=== PATIENT | female | born 1960 | race Caucasian/White ===

== ENCOUNTER 2024-11-07 13:08 | Inpatient (IN) ==
--- NOTE | 2024-11-07 13:27 | Emergency Department Note ---
Impression & Plan G tube feedings, LIZ (acute kidney injury), UTI (urinary tract infection) ED Provider Note NAME: JOSEPHINE DYE AGE: 64 SEX: F : 1960 ARRIVES VIA: Ambulance INFORMANT: Patient, ED PROVIDER(S): Rudy Leos MD CHIEF COMPLAINT: Abnormal labs MEDICAL DECISION MAKING: Patient presents due to concern for abnormal kidney function and reported chills. IV was established and blood work was obtained along with a BioFire and chest x-ray. Initial white count noted to be normal and patient is afebrile. Patient does have a gastrostomy and G-tube. Sites are well-appearing. Patient's blood work today shows a normal white count mild anemia but normal platelet count. The patient does have significant LIZ/ARF with a creat of 4.7 today. Lipase of 218 but no epigastric pain. Urinalysis does show concern for possible infection BioFire is negative. I did speak with the on-call hospitalist Dr. Perkins and the patient was admitted to the medicine service. Additional IV fluids ordered. Discussion w/ other healthcare providers: Dr. Perkins inpatient medicine service Prior /Outside records reviewed: None Differential diagnosis: Infection, dehydration, metabolic abnormality, hypo/hyperglycemia, electrolyte imbalance, anemia, UTI, pneumonia, thyroid dysfunction among others were considered. Diagnostics, as interpreted by me: ECG: None Cardiac monitoring: An order was placed for continuous cardiac monitoring. The monitor shows a rate of 105 with tachycardic and regular rhythm. Patient was placed on pulse oximetry Medical decision rules: None Imaging studies: I informally interpreted the patient's chest x-ray does not show obvious pneumonia with formal report to follow. HPI: Patient presents due to concern for abnormal labs. The patient reports that she has had a prior history of G-tube as well as gas in her ostomy for a fistula. Patient denies any chest pains or shortness of breath she has felt weak and fatigued. She reports that she had some routine blood work completed which showed abnormal kidney function and she was referred here. Patient is currently resident at the [facility]. Patient has had cough which has been nonproductive. No smoking. PAST MEDICAL HISTORY: See Below PAST SURGICAL HISTORY: See Below SOCIAL HISTORY: See Below HOME MEDICATIONS: See Below ALLERGIES: See Below VITALS: See Below PHYSICAL EXAMINATION: GENERAL: Mildly ill but nontoxic in appearance. Wearing glasses. EYE EXAM: Normal conjunctiva. PERRL, no anisocoria and EOM's grossly intact w/o pain. OROPHARYNX: Dry mucus membranes, grossly normal dentition. NECK: Trachea midline, no stridor. LUNGS: Clear to auscultation. Normal chest wall mechanics. HEART: Tachycardic and regular SR, no MRG. ABDOMEN: Abdomen soft, G-tube noted as well as gastrostomy with bag in place. Non-tender, no masses, no rebound or guarding. BACK: No CVA TTP. SKIN: No rashes and no bruising. UPPER EXTREMITIES: Upper extremities are grossly normal. LOWER EXTREMITIES: Grossly normal, no edema. NEURO EXAM: Awake and alert, follows commands, no obvious facial asymmetry, normal speech, moves all 4 extremities. Past Med/Surg History Problem List (Updated 11/09/24 @ 19:44 by Rudy Leos MD) Abdominal pain UTI (urinary tract infection) (Acute) GERD (gastroesophageal reflux disease) G tube feedings (Acute) LIZ (acute kidney injury) (Acute) Social History Smoking Status: Never smoker Hx Alcohol Use: No Hx Substance Use: No Preferred Language: Yi Communication Ability: Effective [employer] Required: No Beliefs That Will Affect Care: None Current Living Situation: Jail Current Living Situation Comment: [place]a Feels Safe at Home: Yes Assistive Devices: Glasses and Walker Allergies Allergies Allergy/AdvReac Type Severity Reaction Status Date / Time meperidine [From Demerol] Allergy Unknown Unknown - Unverified 11/07/24 16:06 On file w/ [facility] Home Meds Home Medications Medication Instructions Recorded Confirmed acetaminophen 500 mg tablet 500 mg feeding tube Q4H PRN Pain 11/07/24 11/07/24 bisacodyl 10 mg rectal suppository 10 mg NH DAILY PRN Constipation 11/07/24 11/07/24 (Dulcolax (bisacodyl)) calcium carbonate (Tums) 600 mg feeding tube Q3H PRN 11/07/24 11/07/24 Indigestion diclofenac sodium 1 % topical gel 2 g topical Q6H PRN Back Pain 11/07/24 11/07/24 magnesium hydroxide 400 mg/5 mL 2,400 mg feeding tube DAILY PRN 11/07/24 11/07/24 oral suspension (Milk of Magnesia) Constipation melatonin 3 mg tablet 3 mg feeding tube HS insomnia 11/07/24 11/07/24 metoprolol tartrate 25 mg tablet 25 mg feeding tube BID 11/07/24 11/07/24 omeprazole 40 mg capsule,delayed 40 mg feeding tube DAILY 11/07/24 11/07/24 release ondansetron 4 mg disintegrating 4 mg PO Q6H PRN Nausea And Vomiting 11/07/24 11/07/24 tablet ondansetron HCl 4 mg tablet 4 mg feeding tube Q8H PRN Upset 11/07/24 11/07/24 Stomach scopolamine base 1 mg over 3 days 1 patch transdermal Q72H PRN 11/07/24 11/07/24 transdermal patch Nausea And Vomiting sodium phosphates 19 gram-7 118 ml NH DAILY PRN Constipation 11/07/24 11/07/24 gram/118 mL enema (Fleet Enema) triamcinolone acetonide 0.1 % 1 applic topical DAILY Rash on back 11/07/24 11/07/24 topical cream Results & Data (ED) Vital Signs Vital Signs - 24 hr 11/07/24 12:58 11/07/24 13:34 11/07/24 13:50 Temperature 36.8 C 37.0 C Temperature Source Oral Oral Pulse Rate 110 H Pulse Rate [Apical] 102 H Respiratory Rate 18 20 Respiratory Effort / Characteristics Non-Labored Spontaneous Respiratory Depth Normal Respiratory Pattern Regular Blood Pressure 129/74 Blood Pressure [Right Arm] 105/65 Blood Pressure Mean 92 Blood Pressure Mean [Right Arm] 78 Blood Pressure Position [Right Arm] Semi-fowlers Pulse Oximetry 99 94 Oxygen Delivery Method Room Air Sepsis Recent Fever Within 48 Hours No Sepsis New/Unexplained Change in Mental Status N/A Sepsis Action Taken by Nursing No Action Required 11/07/24 13:51 Temperature Temperature Source Pulse Rate 111 H Pulse Rate [Apical] Respiratory Rate Respiratory Effort / Characteristics Respiratory Depth Respiratory Pattern Blood Pressure Blood Pressure [Right Arm] Blood Pressure Mean Blood Pressure Mean [Right Arm] Blood Pressure Position [Right Arm] Pulse Oximetry Oxygen Delivery Method Sepsis Recent Fever Within 48 Hours Sepsis New/Unexplained Change in Mental Status Sepsis Action Taken by Jail Medications Current Medication List: was personally reviewed by me Laboratory Data Attestation: I reviewed the patient's lab results. 11/09/24 07:42 11/09/24 07:42 Lab Results 11/07/24 11/07/24 11/07/24 Range/Units 13:20 13:53 15:30 WBC 7.09 (4.8-10.8) K/ul RBC 3.85 L (4.20-5.40) M/uL Hgb 11.0 L (12.0-16.0) g/dl Hct 33.5 L (37.0-47.0) % MCV 87.0 (80.0-100.0) fL MCH 28.6 (25.0-34.0) pg MCHC 32.8 (32.0-36.0) g/dL RDW Std Deviation 43.8 (36.4-46.3) fL RDW Coeff of Juan Manuel 13.8 (11.5-14.5) % Plt Count 209 (130-400) K/uL MPV 9.9 (9.4-12.4) fL Immature Gran % (Auto) 0.3 % Neut % (Auto) 67.4 % Lymph % (Auto) 22.4 % [place] % (Auto) 7.5 % Eos % (Auto) 2.3 % Baso % (Auto) 0.1 % Neut # (Auto) 4.78 (1.40-6.50) K/uL Lymph # (Auto) 1.59 (1.20-3.40) K/uL [place] # (Auto) 0.53 (0.11-0.59) K/uL Eos # (Auto) 0.16 (0.00-0.50) K/uL Baso # (Auto) 0.01 (0.00-0.20) K/uL Immature Gran # (Auto) 0.02 (0.01-0.20) K/uL Sodium 135 L (136-145) mmol/L Potassium 3.8 (3.5-5.1) mmol/L Chloride 77 L (98-107) mmol/L Carbon Dioxide 42 H* (21-32) mmol/L Anion Gap 16 H (3-11) BUN 119 H (6-23) mg/dl Creatinine 4.70 H* (0.6-1.2) mg/dl Est Cr Clr Drug Dosing 11.6 ml/min eGFR 9.76 BUN/Creatinine Ratio 25.3 H (10-20) Glucose 140 H (70-99(Fasting)) mg/dl Calcium 10.1 (8.6-10.3) mg/dl Total Bilirubin 0.9 (0.2-1.0) mg/dl AST 29 (13-39) U/L ALT 26 (7-52) U/L Alkaline Phosphatase 81 (34-104) U/L Total Protein 7.9 (6.0-8.3) gm/dl Albumin 3.9 (3.4-5.0) gm/dl Globulin 4.0 (2.5-4.0) gm/dl Albumin/Globulin Ratio 1.0 (0.9-2) Lipase 218 H (11-82) U/L HCG, Qual Cancelled Urine Color Yellow Urine Appearance Cloudy A (Clear) Urine pH >= 9.0 H (4.5-7.5) Ur Specific [place] 1.010 (1.000-1.030) Urine Protein 1+ H (Negative) Urine Glucose (UA) Negative (Negative) Urine Ketones Negative (Negative) Urine Blood Negative (Negative) Urine Nitrite Negative (Negative) Urine Bilirubin Negative (Negative) Urine Urobilinogen Negative (Negative) Ur Leukocyte Esterase 2+ H (Negative) Urine WBC (Auto) >50 H (0-5) /hpf Urine RBC (Auto) 0-2 (0-2) /hpf U Hyaline Cast (Auto) 0-2 (0-2) /lpf U Epithel Cells (Auto) 6-10 H (0-2) /hpf Urine Bacteria (Auto) 4+ H (None Seen) Urine Comment Adenovirus (PCR) Not Detected (NotDetected) B. pertussis DNA (PCR) Not Detected (NotDetected) B.parapertussis DNA PCR Not Detected (NotDetected) C. pneumoniae DNA (PCR) Not Detected (NotDetected) Coronavirus OC43 (PCR) Not Detected (NotDetected) Coronavirus HKU1 (PCR) Not Detected (NotDetected) Coronavirus 229E (PCR) Not Detected (NotDetected) SARS-CoV-2 (PCR) Not Detected (NotDetected) Coronavirus NL63 (PCR) Not Detected (NotDetected) Human Metapneumovir PCR Not Detected (NotDetected) Influenza Type A (PCR) Not Detected (NotDetected) Influenza Type B (PCR) Not Detected (NotDetected) M. pneumoniae (PCR) Not Detected (NotDetected) Parainfluenza 1 (PCR) Not Detected (NotDetected) Parainfluenza 2 (PCR) Not Detected (NotDetected) Parainfluenza 3 (PCR) Not Detected (NotDetected) Parainfluenza 4 (PCR) Not Detected (NotDetected) RSV (PCR) Not Detected (NotDetected) Entero/Rhino (PCR) Not Detected (NotDetected) Administered Medications Diphenhydramine HCl (Diphenhydramine 50 Mg/Ml Vial) 25 mg IV Q6H PRN PRN Reason: Itching Stop: 12/07/24 18:40 Last Admin: 11/09/24 14:56 Dose: 25 mg Documented By: Admin: 11/08/24 18:45 Dose: 25 mg Documented By: Admin: 11/08/24 02:53 Dose: 25 mg Documented By: Admin: 11/07/24 22:50 Dose: 25 mg Documented By: CHRISTINA Enteral Nutritional Formula (Peptamen 1.5 Ole 1,000 Ml Bag) 0 ml GT DAILY@1900 CAT; Protocol Stop: 12/07/24 20:59 Last Admin: 11/08/24 19:39 Dose: 1,000 ml Documented By: Admin: 11/07/24 21:10 Dose: 1,000 ml Documented By: CHRISTINA Heparin Sodium (Porcine) (Heparin Sod 5,000 Unit/0.5 Ml Vial) 5,000 units SQ Q8 CAT Stop: 12/07/24 21:59 Last Admin: 11/09/24 14:18 Dose: 5,000 units Documented By: Admin: 11/09/24 06:06 Dose: 5,000 units Documented By: Admin: 11/08/24 21:37 Dose: 5,000 units Documented By: Admin: 11/08/24 13:59 Dose: 5,000 units Documented By: Admin: 11/08/24 05:48 Dose: Not Given Documented By: Admin: 11/07/24 21:10 Dose: Not Given Documented By: CHRISTINA Sodium Chloride (Nss) 1,000 mls @ 80 mls/hr IV .[id number] CAT Stop: 11/10/24 15:29 Last Admin: 11/09/24 19:09 Dose: 80 mls/hr Documented By: Infusion: 11/09/24 18:36 Dose: Infused Documented By: Admin: 11/09/24 06:06 Dose: 80 mls/hr Documented By: Infusion: 11/09/24 05:47 Dose: Infused Documented By: Infusion: 11/08/24 17:32 Dose: 80 mls/hr Documented By: Infusion: 11/08/24 16:25 Dose: 0 mls/hr Documented By: Admin: 11/08/24 16:10 Dose: 80 mls/hr Documented By: Infusion: 11/08/24 16:10 Dose: Infused Documented By: Admin: 11/08/24 03:51 Dose: 80 mls/hr Documented By: Infusion: 11/08/24 03:49 Dose: Infused Documented By: Admin: 11/07/24 16:09 Dose: 80 mls/hr Documented By: NINO Pantoprazole Sodium (Protonix) 40 mg in 10 mls @ 5 mls/min IV DAILY CAT Stop: 12/08/24 09:14 Last Admin: 11/09/24 09:20 Dose: 5 mls/min Documented By: Admin: 11/08/24 09:44 Dose: 5 mls/min Documented By: ANDRY Ceftriaxone Sodium (Rocephin) 2,000 mg in 50 mls @ 100 mls/hr IV Q24H CAT Stop: 11/13/24 10:59 Last Infusion: 11/09/24 11:45 Dose: Infused Documented By: Admin: 11/09/24 11:15 Dose: 100 mls/hr Documented By: Infusion: 11/08/24 12:49 Dose: Infused Documented By: Admin: 11/08/24 12:17 Dose: 100 mls/hr Documented By: ANDRY Miscellaneous (Tubefeeds - Stop Order) 1 each N/A DAILY@0900 CAT Stop: 12/08/24 10:59 Last Admin: 11/09/24 09:20 Dose: 1 each Documented By: Admin: 11/08/24 08:55 Dose: 1 each Documented By: ANDRY Ondansetron HCl (Ondansetron Inj 2 Mg/Ml 2 Ml Vial) 4 mg IV Q6H PRN PRN Reason: Nausea Stop: 12/07/24 15:32 Last Admin: 11/09/24 07:27 Dose: 4 mg Documented By: Admin: 11/08/24 08:50 Dose: 4 mg Documented By: ANDRY Sterile Water (Tube Feeding Water Flush) 250 ml JT Q6H CAT Stop: 12/09/24 17:59 Last Admin: 11/09/24 18:33 Dose: 250 ml Documented By: JOHANN Discontinued Medications Acetaminophen (Acetaminophen 1000 Mg/100 Ml Iv) Confirm Administered Dose 1,000 mg IV .STK-MED ONE Stop: 11/09/24 04:26 Last Admin: 11/09/24 04:39 Dose: Not Given Documented By: ELIZABETH Hydromorphone HCl (Hydromorphone Inj 0.5 Mg/0.5 Ml Syr) 0.25 mg IV NOW STA Stop: 11/09/24 05:52 Last Admin: 11/09/24 06:05 Dose: 0.25 mg Documented By: ELIZABETH Sodium Chloride (Nss) 1,000 mls @ 999 mls/hr IV .Q1H1M ONE Stop: 11/07/24 14:48 Last Infusion: 11/07/24 15:00 Dose: Infused Documented By: Admin: 11/07/24 13:52 Dose: 999 mls/hr Documented By: NINO Sodium Chloride (Nss) 500 mls @ 999 mls/hr IV .Q31M ONE Stop: 11/07/24 15:39 Last Infusion: 11/07/24 16:06 Dose: Infused Documented By: Admin: 11/07/24 15:32 Dose: 999 mls/hr Documented By: NINO Acetaminophen (Ofirmev) 1,000 mg in 100 mls @ 400 mls/hr IV NOW STA Stop: 11/09/24 04:28 Last Infusion: 11/09/24 04:55 Dose: Infused Documented By: Admin: 11/09/24 04:34 Dose: 400 mls/hr Documented By: ELIZABETH Ondansetron HCl (Ondansetron Inj 2 Mg/Ml 2 Ml Vial) 4 mg IV NOW STA Stop: 11/07/24 13:16 Last Admin: 11/07/24 13:51 Dose: 4 mg Documented By: NINO Pantoprazole Sodium (Pantoprazole 40 Mg Tab) 40 mg PO QAM [facility] Stop: 12/08/24 08:59 Last Admin: 11/08/24 09:27 Dose: Not Given Documented By: ANDRY Pantoprazole Sodium (Pantoprazole 40 Mg Tab) 40 mg PO NOW STA Stop: 11/07/24 16:12 Last Admin: 11/07/24 21:10 Dose: 40 mg Documented By: KMSidney Discharge Plan Visit Data Chief Complaint: Abnormal Labs/Diagnostic Testing Stated Complaint: ABNORMAL LABS ED Provider: Rudy Leos Discharge Problem: G tube feedings, LIZ (acute kidney injury), UTI (urinary tract infection) Patient Disposition: Admitted As Inpatient Condition: Good Discharge Instructions Interventions: ED Discharge Assessment Last Done: 11/07/24 16:58 Discharge Problem: UTI (urinary tract infection) Qualifiers: Urinary tract infection type: acute cystitis Hematuria presence: without hematuria Qualified Code(s): N30.00 - Acute cystitis without hematuria
[2024-11-07 13:39] LABS: Hematocrit (blood only) 33.5 % (37.0-47.0); Hemoglobin 11.0 g/dl (12.0-16.0); Immature Granulocytes # (auto) 0.02 K/uL (0.01-0.20); Immature Granulocytes % (auto) 0.3 %; Mean Corpuscular Hemoglobin 28.6 pg (25.0-34.0); Mean Corpuscular Volume 87.0 fL (80.0-100.0); Platelet Count 209 K/uL (130-400); RDW Standard Deviation 43.8 fL (36.4-46.3); Red Blood Count 3.85 M/uL (4.20-5.40); White Blood Count 7.09 K/ul (4.8-10.8)
[2024-11-07] MEDS: ONDANSETRON INJ 2 MG/ML 2 ML VIAL IV STA (13:51)
[2024-11-07] MEDS: SODIUM CHLORIDE 0.9% 1,000 ML IV ONE (13:52)
[2024-11-07 14:00] LABS: Alanine Aminotransferase 26.0 U/L (7-52); Albumin Globulin Ratio 1.0 (0.9-2); Alkaline Phosphatase 81.0 U/L (34-104); Anion Gap 16.0 (3-11); Bilirubin,Total 0.9 mg/dl (0.2-1.0); Blood Urea Nitrogen 119.0 mg/dl (6-23); Calcium 10.1 mg/dl (8.6-10.3); Carbon Dioxide 42.0 mmol/L (21-32); Chloride 77.0 mmol/L (98-107); Creatinine Clr Calc Pharmacy 11.6 ml/min; Globulin 4.0 gm/dl (2.5-4.0); Glucose 140.0 mg/dl (70-99(Fasting)); Lipase 218.0 U/L (11-82); Potassium 3.8 mmol/L (3.5-5.1); Sodium 135.0 mmol/L (136-145); Total Protein 7.9 gm/dl (6.0-8.3)
--- NOTE | 2024-11-07 14:33 | XRay Report ---
SINGLE VIEW CHEST CLINICAL HISTORY: Cough. Chills FINDINGS: An AP, portable, upright chest radiograph is obtained. No prior studies are available for c omparison at the time of dictation. Suture material projects over the gastroesophageal junction. Ther e is a hiatal hernia. The cardiomediastinal silhouette is top normal for projection noting atheroscle rotic calcification of the thoracic aorta. There is elevation right hemidiaphragm with atelectasis at the right lung base. The lungs and pleural spaces are otherwise clear. No pneumothorax is seen. The skeletal structures are osteopenic. The bony thorax is grossly intact. IMPRESSION: No acute cardiopulmonary abnormality is identified. ACT 112: Negative or not required by law. Electronically signed by: Allen Abad M.D. 11/07/2024 2:32 PM
[2024-11-07 14:59] LABS: Chlamydia pneumoniae PCR Not Detected (NotDetected); Coronavirus 229E PCR Not Detected (NotDetected); Coronavirus CoV-2 (COVID19)PCR Not Detected (NotDetected); Coronavirus HKU1 PCR Not Detected (NotDetected); Coronavirus NL63 PCR Not Detected (NotDetected); Coronavirus OC43PCR Not Detected (NotDetected); Human Metapneumovirus PCR Not Detected (NotDetected); Parainfluenza Virus 1 PCR Not Detected (NotDetected); Parainfluenza Virus 2 PCR Not Detected (NotDetected); Parainfluenza Virus 3 PCR Not Detected (NotDetected); Parainfluenza Virus 4 PCR Not Detected (NotDetected); Respiratory Syncytial VirusPCR Not Detected (NotDetected); Rhinovirus/Enterovirus PCR Not Detected (NotDetected)
[2024-11-07] MEDS: SODIUM CHLORIDE 0.9% 500 ML IV ONE (15:32)
--- NOTE | 2024-11-07 16:05 | History & Physical Report ---
Date of Service November 07, 2024 Assessment & Plan (1) LIZ (acute kidney injury): Plan: -cr 4.7 with baselin 1.14 -likely 2nd to prerenal etiology -pt admits to not drinking enough water -IVF -renal US -nephrology consulted (2) G tube feedings: Plan: -pt currently receiving nocturnal feedings (3) GERD (gastroesophageal reflux disease): Plan: -protonix Plan Heparin SQ for DVT px History of Present Illness Chief Complaint: abnormal labs Primary Care Provider: Newton Lozano Pt is a 64 y/o female with pmh of GERD, gastric bypass, gastric ulcer with gastric fistula/ostomy, G-tube who presents from detention after being found to have elevated cr >4.0. Her baseline from 09/04 is 1.14. Today in the ER he cr was 4.7. Pt states she drinks liquids only and gets nocturnal tube feeds. She admits to not drinking much over the past few weeks. She was given IVF in the ER and will be admitted for further treatment of LIZ likely 2nd to volume depletion from dehydration. Past Med/Surg History Problem List (Updated 11/07/24 @ 16:03 by Jefe Ovalle MD) GERD (gastroesophageal reflux disease) G tube feedings LIZ (acute kidney injury) Social History Smoking Status: Never smoker Preferred Language: Slovak Feels Safe at Home: Yes Review of Systems Review of Systems: CONST: Negative for fever, body aches and chills. HENT: Negative for neck pain/stiffness, headache, congestion, sore throat, swelling. EYES: Negative for discharge/pain or vision changes. RESP: Negative for cough/hemoptysis and shortness of breath. CV: Negative chest pain, difficulty breathing, palpitations. ABD: Negative pain, nausea, vomiting. : Negative increase frequency, dysuria, blood in urine or stool. MUSC: Negative for muscle aches, edema. SKIN: Negative rash, lesions/sores. NEURO: Negative headache, dizziness, weakness. Physical Exam Physical Exam: GENERAL APPEARANCE NAD, activity normal for age, well developed/ well nourished, no cyanosis, pallor, or diaphoresis. EYES lids/conjunctiva normal. EARS/NOSE/THROAT Mucous membranes moist, nares normal, lips/teeth normal uvula midline without oral pharyngeal erythema, exudate or swelling TMs normal bilaterally. No lymphangitis/lymphedema. HEAD/NECK normocephalic atraumatic, no facial trauma, neck is supple. RESPIRATORY respiratory effort normal, speaks in full sentences, no tripod position, no accessory muscle use. Lungs clear to auscultation without rhonchi, wheezes, rales CARDIAC Regular rate and rhythm, no edema. ABDOMINAL gastric fistula with ostomy, G-tube. MUSCLES/EXTREMITIES No abnormal range of motion, no swelling. SKIN Warm, pink and dry. No rashes, dermatoses, petechiae or lesions. NEUROLOGICAL Speech is clear and appropriate. Normal level of consciousness. Gait and coordination are normal. 5/5 strength in all extremities. PSYCH Normal mood and affect. Judgement/competence is appropriate Results & Data Results & Data Vital Signs (Past 12 Hours) Vital Signs Temp Pulse Pulse Resp BP BP Pulse Ox 11/07/24 15:30 102 H 19 107/87 99 11/07/24 13:51 111 H 11/07/24 13:50 37.0 C 11/07/24 13:34 102 H 20 105/65 94 11/07/24 12:58 36.8 C 110 H 18 129/74 99 O2 Del Method 11/07/24 15:30 Room Air 11/07/24 13:51 11/07/24 13:50 11/07/24 13:34 Room Air 11/07/24 12:58 PG Care Time/CCT Total # of Minutes Spent Total Time Spent with Patient: Total time spent is greater than 50% in coordination of care (as documented) at patient's floor/unit and/or counseling patient: Coding Level of Care Code 29991 INT INP/OBS CARE 2/55MIN Diagnoses LIZ (acute kidney injury) N17.9 G tube feedings Z93.1 GERD (gastroesophageal reflux disease) K21.9
[2024-11-07] MEDS: SODIUM CHLORIDE 0.9% 1,000 ML IV SCH (16:09)
[2024-11-07 16:24] LABS: Appearance Urine Cloudy (Clear); Bacteria Urine Automated 4+ (None Seen); Cast Urine Automated 0-2 /lpf (0-2); Glucose Urine UA Negative (Negative); RBC Urine Automated 0-2 /hpf (0-2); WBC Urine Automated >50 /hpf (0-5)
[2024-11-07] MEDS ORDERED: PATIENT'S OWN ENTERAL FEEDING GT SCH (19:00)
[2024-11-07] MEDS: PEPTAMEN 1.5 CAL 1,000 ML BAG GT SCH (21:10)
[2024-11-07] MEDS: HEPARIN SOD 5,000 UNIT/0.5 ML VIAL SQ SCH (21:10)
--- NOTE | 2024-11-07 21:55 | Ultrasound Report ---
Exam(s): US RENAL EXAM: US Retroperitoneal Limited, Renal CLINICAL HISTORY: Reason for exam: LIZ. TECHNIQUE: Real-time limited ultrasound of the retroperitoneum with image documentation. COMPARISON: No relevant prior studies available. FINDINGS: Right kidney: The right kidney measures 9.1x 4.3 x 4.4 cm 90.2 ml. 3 mm slightly hyperechoic nonshadowing structure in the right kidney, likely sinus fat. The right renal cortex measures 12 mm. Left kidney: The left renal cortex measures 7 mm. The left kidney measures 7.2 x 4.3 x 3.9 cm with mild cortical atrophy. No hydronephrosis, mass, or calculus. Bladder: The urinary bladder is partially distended and unremarkable. Both ureteral jets are visible. IMPRESSION: Mild renal atrophy, mostly on the left. No mass or hydronephrosis. Electronically signed by: Praful Cisneros MD 11/07/24 21:54 PM
[2024-11-07] MEDS: diphenhydrAMINE 50 MG/ML VIAL IV PRN (22:50)
[2024-11-08 08:19] LABS: Hematocrit (blood only) 28.8 % (37.0-47.0); Hemoglobin 9.3 g/dl (12.0-16.0); Mean Corpuscular Hemoglobin 29.0 pg (25.0-34.0); Mean Corpuscular Volume 89.7 fL (80.0-100.0); Platelet Count 166 K/uL (130-400); RDW Standard Deviation 44.4 fL (36.4-46.3); Red Blood Count 3.21 M/uL (4.20-5.40); White Blood Count 5.37 K/ul (4.8-10.8)
[2024-11-08] MEDS: ONDANSETRON INJ 2 MG/ML 2 ML VIAL IV PRN (08:50)
[2024-11-08 09:19] LABS: Anion Gap 9.0 (3-11); Calcium 9.0 mg/dl (8.6-10.3); Carbon Dioxide 38.0 mmol/L (21-32); Chloride 93.0 mmol/L (98-107); Potassium 3.6 mmol/L (3.5-5.1); Sodium 140.0 mmol/L (136-145)
--- NOTE | 2024-11-08 09:21 | Nephrology Consultation ---
Date of Consultation November 08, 2024 Assessment & Plan (1) LIZ (acute kidney injury): * LIZ due to clinical dehydration, cystitis. It is unclear whether patient was receiving free water w/ G-tube feedings * Cr is trending down following gentle hydration * Baseline Cr 1.0 09/04 at [facility] * Urinalysis suggestive of UTI w/ pyuria * 11/07/24 renal US revealed: R 9.1 cm, L 7.2 cm. Mild renal atrophy, mostly on the L. No mass or hydronephrosis * Continue 0.9 NS at 80 cc/hr * Monitor daily BMP, UO * Will request H&P, last physician note from [facility] (2) UTI (urinary tract infection): * Urinalysis w/ pyuria * Urine cx + E. Coli * Continue empiric ceftriaxone therapy History of Present Illness Reason for Consultation: LIZ Attending Physician: Timothy Lozano MD History of Present Illness Mrs. Mckay is a 64 year old white female who is seen at the request of the [facility] hospitalist service for evaluation of LIZ. This is her 1st [facility] hospitalization. There are no outside medical records available for review at this time. Mrs. Mckay reports that she lives in [place], [place] and has no prior LIZ/CKD. She has not undergone evaluation by a child health associate in the past. She denies any chronic medical illnesses other than obesity. In 2012 she was 5' 1" and weighed 265 lbs. She underwent gastric bypass surgery at [facility] in [place], [place]. She reports that the surgery was complicated and she spent 1 month in the hospital. Post hospitalization she lost 80 lbs. [facility] when she was found to have cholecystitis. She returned to [facility] and underwent cholecystectomy. Unfortunately the surgery was again complicated and she reports being transferred to [facility]. Mrs. 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 She notes that anything she takes orally drains into a collection drain from her enterocutaneous fistula. Mrs. Mckay was transferred to [facility] in [place], [place] 09/04. Recently she had become lethargic. Porsche ribera MD preformed laboratory testing and sent her to [facility] when Cr was found to be 4.54 (baseline 1.0 09/04 at [facility]). EMD biofire testing was negative. Allergies Allergy/AdvReac Type Severity Reaction Status Date / Time meperidine [From Demerol] Allergy Unknown Unknown - Unverified 11/07/24 16:06 On file w/ [facility] Home Medications Medication Instructions Recorded Confirmed Type acetaminophen 500 mg tablet 500 mg feeding tube Q4H PRN Pain 11/07/24 11/07/24 History bisacodyl 10 mg rectal suppository 10 mg VT DAILY PRN Constipation 11/07/24 11/07/24 History (Dulcolax (bisacodyl)) calcium carbonate (Tums) 600 mg feeding tube Q3H PRN 11/07/24 11/07/24 History Indigestion diclofenac sodium 1 % topical gel 2 g topical Q6H PRN Back Pain 11/07/24 11/07/24 History magnesium hydroxide 400 mg/5 mL 2,400 mg feeding tube DAILY PRN 11/07/24 11/07/24 History oral suspension (Milk of Magnesia) Constipation melatonin 3 mg tablet 3 mg feeding tube HS insomnia 11/07/24 11/07/24 History metoprolol tartrate 25 mg tablet 25 mg feeding tube BID 11/07/24 11/07/24 History omeprazole 40 mg capsule,delayed 40 mg feeding tube DAILY 11/07/24 11/07/24 History release ondansetron 4 mg disintegrating 4 mg PO Q6H PRN Nausea And Vomiting 11/07/24 11/07/24 History tablet ondansetron HCl 4 mg tablet 4 mg feeding tube Q8H PRN Upset 11/07/24 11/07/24 History Stomach scopolamine base 1 mg over 3 days 1 patch transdermal Q72H PRN 11/07/24 11/07/24 History transdermal patch Nausea And Vomiting sodium phosphates 19 gram-7 118 ml VT DAILY PRN Constipation 11/07/24 11/07/24 History gram/118 mL enema (Fleet Enema) triamcinolone acetonide 0.1 % 1 applic topical DAILY Rash on back 11/07/24 11/07/24 History topical cream Patient History Social History Smoking Status: Never smoker Hx Alcohol Use: No Hx Substance Use: No Preferred Language: Tamazight Communication Ability: Effective Certified Ethical Hacker Required: No Beliefs That Will Affect Care: None Current Living Situation: [facility] Current Living Situation Comment: Marta Feels Safe at Home: Yes Assistive Devices: Glasses and Walker Review of Systems Constitutional: no fever Eyes: no problem reported Ear, Nose, Mouth, Throat: no problem reported Respiratory: no problem reported Cardiovascular: no chest pain Gastrointestinal: no abdominal pain, no nausea, no vomiting and no diarrhea/loose stools Genitourinary: no problem reported Integumentary: no rash Physical Exam Constitutional: not in distress Eyes: PERRL, conjunctivae normal, anicteric sclerae ENMT: external ear and nose normal, oropharynx normal Neck: trachea midline, no thyromegaly Respiratory: normal respiratory effort, lungs clear to auscultation Cardiovascular: RRR, no murmur, no edema Gastrointestinal (Abdomen): hypoactive BS G-tube in place 4 cm midline enterocutaneous fistula wit h drain bag in place Musculoskeletal: Extremities: no cyanosis and no clubbing Skin: + turgor decreased Neurologic: no focal motor deficits Results & Data Vital Signs (Past 12 Hours) Vital Signs Temp Pulse Resp BP Pulse Ox O2 Del Method 11/08/24 07:22 36.3 C L 97 H 18 104/66 95 Room Air Laboratory Results Laboratory Results WBC 5.37 K/ul (4.8-10.8) 11/08/24 07:32 RBC 3.21 M/uL (4.20-5.40) L 11/08/24 07:32 Hgb 9.3 g/dl (12.0-16.0) L 11/08/24 07:32 Hct 28.8 % (37.0-47.0) L 11/08/24 07:32 MCV 89.7 fL (80.0-100.0) 11/08/24 07:32 MCH 29.0 pg (25.0-34.0) 11/08/24 07:32 MCHC 32.3 g/dL (32.0-36.0) 11/08/24 07:32 RDW Std Deviation 44.4 fL (36.4-46.3) 11/08/24 07:32 RDW Coeff of Juan Manuel 13.4 % (11.5-14.5) 11/08/24 07:32 Plt Count 166 K/uL (130-400) 11/08/24 07:32 MPV 10.2 fL (9.4-12.4) 11/08/24 07:32 Immature Gran % (Auto) 0.3 % 11/07/24 13:20 Neut % (Auto) 67.4 % 11/07/24 13:20 Lymph % (Auto) 22.4 % 11/07/24 13:20 [place] % (Auto) 7.5 % 11/07/24 13:20 Eos % (Auto) 2.3 % 11/07/24 13:20 Baso % (Auto) 0.1 % 11/07/24 13:20 Neut # (Auto) 4.78 K/uL (1.40-6.50) 11/07/24 13:20 Lymph # (Auto) 1.59 K/uL (1.20-3.40) 11/07/24 13:20 [place] # (Auto) 0.53 K/uL (0.11-0.59) 11/07/24 13:20 Eos # (Auto) 0.16 K/uL (0.00-0.50) 11/07/24 13:20 Baso # (Auto) 0.01 K/uL (0.00-0.20) 11/07/24 13:20 Immature Gran # (Auto) 0.02 K/uL (0.01-0.20) 11/07/24 13:20 Sodium 140 mmol/L (136-145) 11/08/24 07:32 Potassium 3.6 mmol/L (3.5-5.1) 11/08/24 07:32 Chloride 93 mmol/L (98-107) L 11/08/24 07:32 Carbon Dioxide 38 mmol/L (21-32) H 11/08/24 07:32 Anion Gap 9 (3-11) 11/08/24 07:32 BUN 119 mg/dl (6-23) H 11/07/24 13:20 Creatinine 4.70 mg/dl (0.6-1.2) H* 11/07/24 13:20 Est Cr Clr Drug Dosing 11.6 ml/min 11/07/24 13:20 eGFR 9.76 11/07/24 13:20 BUN/Creatinine Ratio 25.3 (10-20) H 11/07/24 13:20 Glucose 140 mg/dl (70-99(Fasting)) H 11/07/24 13:20 Calcium 9.0 mg/dl (8.6-10.3) 11/08/24 07:32 Total Bilirubin 0.9 mg/dl (0.2-1.0) 11/07/24 13:20 AST 29 U/L (13-39) 11/07/24 13:20 ALT 26 U/L (7-52) 11/07/24 13:20 Alkaline Phosphatase 81 U/L (34-104) 11/07/24 13:20 Total Protein 7.9 gm/dl (6.0-8.3) 11/07/24 13:20 Albumin 3.9 gm/dl (3.4-5.0) 11/07/24 13:20 Globulin 4.0 gm/dl (2.5-4.0) 11/07/24 13:20 Albumin/Globulin Ratio 1.0 (0.9-2) 11/07/24 13:20 Lipase 218 U/L (11-82) H 11/07/24 13:20 HCG, Qual Cancelled 11/07/24 13:20 Urine Color Yellow 11/07/24 15:30 Urine Appearance Cloudy (Clear) A 11/07/24 15:30 Urine pH >= 9.0 (4.5-7.5) H 11/07/24 15:30 Ur Specific [place] 1.010 (1.000-1.030) 11/07/24 15:30 Urine Protein 1+ (Negative) H 11/07/24 15:30 Urine Glucose (UA) Negative (Negative) 11/07/24 15:30 Urine Ketones Negative (Negative) 11/07/24 15:30 Urine Blood Negative (Negative) 11/07/24 15:30 Urine Nitrite Negative (Negative) 11/07/24 15:30 Urine Bilirubin Negative (Negative) 11/07/24 15:30 Urine Urobilinogen Negative (Negative) 11/07/24 15:30 Ur Leukocyte Esterase 2+ (Negative) H 11/07/24 15:30 Urine WBC (Auto) >50 /hpf (0-5) H 11/07/24 15:30 Urine RBC (Auto) 0-2 /hpf (0-2) 11/07/24 15:30 U Hyaline Cast (Auto) 0-2 /lpf (0-2) 11/07/24 15:30 U Epithel Cells (Auto) 6-10 /hpf (0-2) H 11/07/24 15:30 Urine Bacteria (Auto) 4+ (None Seen) H 11/07/24 15:30 Urine Comment 11/07/24 15:30 Adenovirus (PCR) Not Detected (NotDetected) 11/07/24 13:53 B. pertussis DNA (PCR) Not Detected (NotDetected) 11/07/24 13:53 B.parapertussis DNA PCR Not Detected (NotDetected) 11/07/24 13:53 C. pneumoniae DNA (PCR) Not Detected (NotDetected) 11/07/24 13:53 Coronavirus OC43 (PCR) Not Detected (NotDetected) 11/07/24 13:53 Coronavirus HKU1 (PCR) Not Detected (NotDetected) 11/07/24 13:53 Coronavirus 229E (PCR) Not Detected (NotDetected) 11/07/24 13:53 SARS-CoV-2 (PCR) Not Detected (NotDetected) 11/07/24 13:53 Coronavirus NL63 (PCR) Not Detected (NotDetected) 11/07/24 13:53 Human Metapneumovir PCR Not Detected (NotDetected) 11/07/24 13:53 Influenza Type A (PCR) Not Detected (NotDetected) 11/07/24 13:53 Influenza Type B (PCR) Not Detected (NotDetected) 11/07/24 13:53 M. pneumoniae (PCR) Not Detected (NotDetected) 11/07/24 13:53 Parainfluenza 1 (PCR) Not Detected (NotDetected) 11/07/24 13:53 Parainfluenza 2 (PCR) Not Detected (NotDetected) 11/07/24 13:53 Parainfluenza 3 (PCR) Not Detected (NotDetected) 11/07/24 13:53 Parainfluenza 4 (PCR) Not Detected (NotDetected) 11/07/24 13:53 RSV (PCR) Not Detected (NotDetected) 11/07/24 13:53 Entero/Rhino (PCR) Not Detected (NotDetected) 11/07/24 13:53 Impressions Chest X-Ray 11/07/24 13:48 SINGLE VIEW CHEST CLINICAL HISTORY: Cough. Chills FINDINGS: An AP, portable, upright chest radiograph is obtained. No prior studies are available for comparison at the time of dictation. Suture material projects over the gastroesophageal junction. There is a hiatal hernia. The cardiomediastinal silhouette is top normal for projection noting atherosclerotic calcification of the thoracic aorta. There is elevation right hemidiaphragm with atelectasis at the right lung base. The lungs and pleural spaces are otherwise clear. No pneumothorax is seen. The skeletal structures are osteopenic. The bony thorax is grossly intact. IMPRESSION: No acute cardiopulmonary abnormality is identified. ACT 112: Negative or not required by law. Electronically signed by: Allen Abad M.D. 11/07/2024 2:32 PM Renal Ultrasound 11/07/24 15:36 Exam(s): US RENAL EXAM: US Retroperitoneal Limited, Renal CLINICAL HISTORY: Reason for exam: LIZ. TECHNIQUE: Real-time limited ultrasound of the retroperitoneum with image documentation. COMPARISON: No relevant prior studies available. FINDINGS: Right kidney: The right kidney measures 9.1x 4.3 x 4.4 cm 90.2 ml. 3 mm slightly hyperechoic nonshadowing structure in the right kidney, likely sinus fat. The right renal cortex measures 12 mm. Left kidney: The left renal cortex measures 7 mm. The left kidney measures 7.2 x 4.3 x 3.9 cm with mild cortical atrophy. No hydronephrosis, mass, or calculus. Bladder: The urinary bladder is partially distended and unremarkable. Both ureteral jets are visible. IMPRESSION: Mild renal atrophy, mostly on the left. No mass or hydronephrosis. Electronically signed by: Praful Cisneros MD 11/07/24 21:54 PM Diagnostic Findings 11/07/24 renal US: R 9.1 cm, L 7.2 cm. Mild renal atrophy, mostly on the L. No mass or hydronephrosis PG Care Time/CCT Total # of Minutes Spent Total Time Spent with Patient: Total time spent is greater than 50% in coordination of care (as documented) at patient's floor/unit and/or counseling patient: Coding Level of Care Code 31384 IN/OBS CONSULT LVL 5,80M Diagnoses LIZ (acute kidney injury) N17.9 UTI (urinary tract infection) N39.0
[2024-11-08 09:25] LABS: Blood Urea Nitrogen 111.0 mg/dl (6-23); Creatinine Clr Calc Pharmacy 13.6 ml/min; Glucose 116.0 mg/dl (70-99(Fasting))
[2024-11-08] MEDS: PANTOprazole 40 MG/10 ML SYR IV SCH (09:44)
--- NOTE | 2024-11-08 11:00 | Hospitalist Progress Note ---
Date of Service November 08, 2024 Assessment & Plan (1) LIZ (acute kidney injury): Plan: Patient is a resident of the [facility]. Presents to the hospital after a routine blood work showed evidence of LIZ -cr 4.7 with baseline 1.14 -likely 2nd to prerenal etiology, possibly UTI -pt admits to not drinking enough water -IVF -renal US unremarkable -nephrology consulted -Repeat Cr trending down a little (2) UTI (urinary tract infection): Plan: Urinalysis shows evidence of UTI will empirically start ceftrioaxone await urine cultures (3) G tube feedings: Plan: -pt currently receiving feedings (4) GERD (gastroesophageal reflux disease): Plan: -protonix Plan Heparin SQ for DVT px Admission and Anticipated Discharge Date Admission Date: November 07, 2024 Subjective patient seen and examined, lying quietly in bed Review of Systems Review of Systems: All systems reviewed are negative, apart from the ones contained in the history. Physical Exam Physical Exam: The patient is awake, alert and oriented 3, well developed and well nourished, normocephalic and atraumatic, lying in bed and in no acute distress. HEENT--PERRL, EOMI, mucous membranes and oropharynx mildly dry Neck--supple. No JVD. No bruits. Thyroid normal, trachea midline, no adenopathy. Heart--normal S1 and S2. No murmurs, rubs or gallops. Lungs--clear bilaterally, no respiratory distress, no accessory muscle use. Abdomen--gastrostomy, Extremities--no cyanosis or clubbing. No edema. Dermatologic--normal skin turgor, normal color, no abnormal lymph nodes, no rash. Neurologic--cranial nerves II through XII grossly intact. Rheumatologic--normal range of motion. Psychiatric--normal affect. Results & Data Results & Data Vital Signs (Past 12 Hours) Vital Signs Temp Pulse Resp BP Pulse Ox O2 Del Method 11/08/24 07:22 97.3 F L 97 H 18 104/66 95 Room Air PG Care Time/CCT Total # of Minutes Spent Total Time Spent with Patient: Total time spent is greater than 50% in coordination of care (as documented) at patient's floor/unit and/or counseling patient: Coding Level of Care Code 99270 SUB INP/OBS CARE 2/35MIN Diagnoses LIZ (acute kidney injury) N17.9 UTI (urinary tract infection) N39.0 G tube feedings Z93.1 GERD (gastroesophageal reflux disease) K21.9 Time Spent (min) 35
[2024-11-08] MEDS: cefTRIAXone SODIUM 2,000 MG/50 ML BAG IV SCH (12:17)
[2024-11-08 14:48] LABS: Anion Gap 12.0 (3-11); Blood Urea Nitrogen 105.0 mg/dl (6-23); Calcium 9.6 mg/dl (8.6-10.3); Carbon Dioxide 36.0 mmol/L (21-32); Chloride 94.0 mmol/L (98-107); Creatinine Clr Calc Pharmacy 14.6 ml/min; Glucose 128.0 mg/dl (70-99(Fasting)); Potassium 3.7 mmol/L (3.5-5.1); Sodium 142.0 mmol/L (136-145)
[2024-11-09] MEDS: ACETAMINOPHEN 1,000 MG/100 ML VIAL IV STA (04:34)
[2024-11-09] MEDS: ACETAMINOPHEN 1000 MG/100 ML IV IV ONE (04:39)
[2024-11-09] MEDS: HYDROmorphone INJ 0.5 MG/0.5 ML SYR IV STA (06:05)
[2024-11-09 08:32] LABS: Anion Gap 8.0 (3-11); Blood Urea Nitrogen 87.0 mg/dl (6-23); Calcium 9.1 mg/dl (8.6-10.3); Carbon Dioxide 32.0 mmol/L (21-32); Chloride 102.0 mmol/L (98-107); Creatinine Clr Calc Pharmacy 17.5 ml/min; Glucose 147.0 mg/dl (70-99(Fasting)); Potassium 3.7 mmol/L (3.5-5.1); Sodium 142.0 mmol/L (136-145)
[2024-11-09 08:40] LABS: Hematocrit (blood only) 29.3 % (37.0-47.0); Hemoglobin 9.5 g/dl (12.0-16.0); Mean Corpuscular Hemoglobin 29.1 pg (25.0-34.0); Mean Corpuscular Volume 89.6 fL (80.0-100.0); Platelet Count 169 K/uL (130-400); RDW Standard Deviation 43.4 fL (36.4-46.3); Red Blood Count 3.27 M/uL (4.20-5.40); White Blood Count 5.10 K/ul (4.8-10.8)
--- NOTE | 2024-11-09 09:11 | Nephrology Progress Note ---
Date of Service November 09, 2024 Assessment & Plan (1) LIZ (acute kidney injury): Plan: * LIZ due to clinical dehydration, cystitis. It is unclear whether patient was receiving free water w/ G-tube feedings * Cr improved to 3.12 this am * Baseline Cr 1.0 09/04 at [facility] * Urinalysis suggestive of UTI w/ pyuria * 11/07/24 renal US revealed: R 9.1 cm, L 7.2 cm. Mild renal atrophy, mostly on the L. No mass or hydronephrosis * Continue 0.9 NS at 80 cc/hr * Monitor daily BMP, UO * H&P, last physician note have been requested from [facility] (2) UTI (urinary tract infection): Plan: * Urinalysis w/ pyuria * Urine cx + E. Coli * Continue empiric ceftriaxone therapy Admission and Anticipated Discharge Date Admission Date: November 07, 2024 Subjective Mrs. Mckay was evaluated in her hospital room this morning. She is tolerating IV hydration without side effect. She voiced no new medical concerns Review of Systems Constitutional: no fever Eyes: no problem reported Ear, Nose, Mouth, Throat: no problem reported Respiratory: no problem reported Cardiovascular: no chest pain Gastrointestinal: no abdominal pain, no nausea, no vomiting and no diarrhea/loose stools Genitourinary: no problem reported Integumentary: no rash Physical Exam Constitutional: not in distress Eyes: PERRL, conjunctivae normal, anicteric sclerae ENMT: external ear and nose normal, oropharynx normal Neck: trachea midline, no thyromegaly Respiratory: normal respiratory effort, lungs clear to auscultation Cardiovascular: RRR, no murmur, no edema Gastrointestinal (Abdomen): normal bowel sounds, soft, nontender, no hepatosplenomegaly Musculoskeletal: Extremities: no cyanosis and no clubbing Skin: no rashes, warm and dry + turgor decreased Neurologic: no focal motor deficits Results & Data Vital Signs (Past 12 Hours) Vital Signs Temp Pulse Resp BP Pulse Ox O2 Del Method 11/09/24 07:49 Room Air 11/09/24 07:44 36.7 C 106 H 17 128/78 94 Room Air Laboratory Results Laboratory Results - last 24 hr 11/08/24 11/08/24 11/09/24 07:32 14:13 07:42 WBC 5.10 RBC 3.27 L Hgb 9.5 L Hct 29.3 L MCV 89.6 MCH 29.1 MCHC 32.4 RDW Std Deviation 43.4 RDW Coeff of Juan Manuel 13.2 Plt Count 169 MPV 10.1 Sodium 140 142 142 Potassium 3.6 3.7 3.7 Chloride 93 L 94 L 102 Carbon Dioxide 38 H 36 H 32 Anion Gap 9 12 H 8 BUN 111 H 105 H 87 H Creatinine 4.03 H D 3.74 H 3.12 H D Est Cr Clr Drug Dosing 13.6 14.6 17.5 eGFR 11.74 12.84 15.96 BUN/Creatinine Ratio 27.5 H 28.1 H 27.9 H Glucose 116 H 128 H 147 H Calcium 9.0 9.6 9.1 PG Care Time/CCT Total # of Minutes Spent Total Time Spent with Patient: Total time spent is greater than 50% in coordination of care (as documented) at patient's floor/unit and/or counseling patient: Coding Level of Care Code 30207 SUB INP/OBS CARE 3/50MIN Diagnoses LIZ (acute kidney injury) N17.9 UTI (urinary tract infection) N39.0
--- NOTE | 2024-11-09 10:20 | CT Scan Report ---
CT SCAN OF THE ABDOMEN AND PELVIS WITHOUT IV CONTRAST CLINICAL HISTORY: Generalized abdominal pain. COMPARISON STUDY: Renal ultrasound dated 11/07/2024 TECHNIQUE: CT scan of the abdomen and pelvis is performed from the lung bases to the proximal femora. Images are reviewed in the axial, sagittal, and coronal planes. IV contrast was not administered for this examination. A dose lowering technique was utilized adhering to the principles of ALARA. CT DOSE: 1434.98 mGy.cm FINDINGS: Lung bases: The heart is normal in size and without pericardial effusion. There is coronary artery at herosclerosis. The lung bases are clear noting bibasilar scarring/atelectasis. Liver: The unenhanced liver is normal in size, contour, and attenuation. There is no intrahepatic reyna iary ductal dilatation. Gallbladder: Surgically absent. Spleen: Normal in size and attenuation. Pancreas: The unenhanced pancreas is moderately atrophic and grossly unremarkable. Adrenal glands: Unremarkable. Kidneys: The unenhanced kidneys demonstrate mild cortical atrophy and are without hydronephrosis. The re are no renal calculi identified. There is no evidence of contour deforming renal mass lesion. Abdominal vasculature: The abdominal aorta is normal in course and caliber noting mild atheroscleroti c calcification. Stomach and bowel: There is a small hiatal hernia. 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 No bowel obstruction is seen. A percutaneous jejunostomy tube is in place. The appendix is not visualized. There is a thin 1.9 cm pocket of fluid with postsurgical farhad nge in the left ventral abdominal wall musculature seen on axial image #106. This closely approximate s and may communicate with the distal/excluded stomach as seen on image #93. Peritoneum: There is no intraperitoneal free air or abdominal ascites. There is postsurgical change a nd dehiscence of the ventral abdominal wall. There is a fat and bowel containing hernia. Lymphadenopathy: None. Pelvic viscera: A tiny focus of gas in the bladder lumen is likely related to instrumentation. The bl adder is otherwise normal as imaged. The uterus is surgically absent. No adnexal lesion is seen. Ther e are bilateral fat-containing groin hernias. Skeletal structures: The skeletal structures are osteopenic. There is mild lumbosacral spondylosis an d scoliosis. No lytic or blastic lesions are seen. IMPRESSION: 1. No acute infectious or inflammatory findings are identified in the abdomen or pelvis. 2. There is postsurgical change consistent with a Mariam-en-Y gastric bypass procedure, and a D. Lukas pie tube is in place. There is no bowel obstruction. 3. There is a fat and bowel containing umbilical hernia. 4. There is a thin pocket of fluid with postsurgical change in the left ventral abdominal wall muscul ature which closely approximates and may communicate with the distal/excluded stomach. The gastric fi stula is not excluded and clinical correlation will be essential. 5. Postsurgical change is seen in the ventral abdominal wall which is dehiscent. 6. Additional findings as above. ACT 112: Negative or not required by law. Electronically signed by: Allen Abad M.D. 11/09/2024 10:19 AM
--- NOTE | 2024-11-09 12:07 | Hospitalist Progress Note ---
Date of Service November 09, 2024 Assessment & Plan (1) LIZ (acute kidney injury): Plan: Patient is a resident of the [facility]. Presents to the hospital after a routine blood work showed evidence of LIZ -On admission,cr 4.7 with baseline 1.14 -likely 2nd to prerenal etiology, possibly UTI -pt admits to not drinking enough water -IVF -renal US unremarkable -nephrology consulted -Cr has continued to trend down (2) UTI (urinary tract infection): Plan: Urinalysis shows evidence of UTI will empirically start ceftrioaxone await urine cultures (3) G tube feedings: Plan: -pt currently receiving feedings (4) GERD (gastroesophageal reflux disease): Plan: -protonix (5) Abdominal pain: Plan: This morning, patient complained of some abdominal discomfort said it had been going on for a while CT abdomen and Pelvis did not show any acute pathology Plan Heparin SQ for DVT px Disposition: Continue hospitalization, d/c when ok by nephrology Admission and Anticipated Discharge Date Admission Date: November 07, 2024 Subjective patient seen and examined, complained of some abdominal discomfort Review of Systems Review of Systems: All systems reviewed are negative, apart from the ones contained in the history. Physical Exam Physical Exam: The patient is awake, alert and oriented 3, well developed and well nourished, normocephalic and atraumatic, lying in bed and in no acute distress. HEENT--PERRL, EOMI, mucous membranes and oropharynx mildly dry Neck--supple. No JVD. No bruits. Thyroid normal, trachea midline, no adenopathy. Heart--normal S1 and S2. No murmurs, rubs or gallops. Lungs--clear bilaterally, no respiratory distress, no accessory muscle use. Abdomen--gastrostomy, Extremities--no cyanosis or clubbing. No edema. Dermatologic--normal skin turgor, normal color, no abnormal lymph nodes, no rash. Neurologic--cranial nerves II through XII grossly intact. Rheumatologic--normal range of motion. Psychiatric--normal affect. Results & Data Results & Data Vital Signs (Past 12 Hours) Vital Signs Temp Pulse Resp BP Pulse Ox O2 Del Method 11/09/24 11:26 98.1 F 104 H 18 124/79 95 Room Air 11/09/24 07:49 Room Air 11/09/24 07:44 98.1 F 106 H 17 128/78 94 Room Air PG Care Time/CCT Total # of Minutes Spent Total Time Spent with Patient: Total time spent is greater than 50% in coordination of care (as documented) at patient's floor/unit and/or counseling patient: Coding Level of Care Code 37537 SUB INP/OBS CARE 2/35MIN Diagnoses LIZ (acute kidney injury) N17.9 UTI (urinary tract infection) N39.0 G tube feedings Z93.1 GERD (gastroesophageal reflux disease) K21.9 Abdominal pain R10.9 Time Spent (min) 35
[2024-11-09] MEDS: TUBE FEEDING WATER FLUSH JT SCH (18:33)
[2024-11-09] MEDS: PEPTAMEN 1.5 CAL 1,000 ML BAG GT SCH (20:12)
--- NOTE | 2024-11-10 09:00 | Nephrology Progress Note ---
Date of Service November 10, 2024 Assessment & Plan (1) LIZ (acute kidney injury): Plan: * LIZ due to clinical dehydration, cystitis. It is unclear whether patient was receiving free water w/ G-tube feedings * Cr improved to 2.42 this am * Baseline Cr 1.0 09/04 at [facility] * Urinalysis w/ pyuria suggestive of UTI * 11/07/24 renal US revealed: R 9.1 cm, L 7.2 cm. Mild renal atrophy, mostly on the L. No mass or hydronephrosis * Continue 0.9 NS at 80 cc/hr * Monitor daily BMP, UO (2) UTI (urinary tract infection): Plan: * Urinalysis w/ pyuria * Urine cx + E. Coli * Continue empiric ceftriaxone therapy Admission and Anticipated Discharge Date Admission Date: November 07, 2024 Subjective Mrs. Mckay was evaluated in her hospital room this morning. She is tolerating IV hydration without side effect. She voiced no new medical concerns Review of Systems Constitutional: no fever Eyes: no problem reported Ear, Nose, Mouth, Throat: no problem reported Respiratory: no problem reported Cardiovascular: no chest pain Gastrointestinal: no abdominal pain, no nausea, no vomiting and no diarrhea/loose stools Genitourinary: no problem reported Integumentary: no rash Physical Exam Constitutional: not in distress Eyes: PERRL, conjunctivae normal, anicteric sclerae ENMT: external ear and nose normal, oropharynx normal Neck: trachea midline, no thyromegaly Respiratory: normal respiratory effort, lungs clear to auscultation Cardiovascular: RRR, no murmur, no edema Gastrointestinal (Abdomen): normal bowel sounds, soft, nontender, no hepatosplenomegaly Musculoskeletal: Extremities: no cyanosis and no clubbing Skin: no rashes, warm and dry + turgor decreased Neurologic: no focal motor deficits Results & Data Vital Signs (Past 12 Hours) Vital Signs Temp Pulse Resp BP Pulse Ox O2 Del Method 11/10/24 07:47 36.6 C 98 H 16 124/78 96 Room Air Laboratory Results Laboratory Results - last 24 hr 11/10/24 09:23 WBC 5.27 RBC 3.49 L Hgb 9.9 L Hct 31.0 L MCV 88.8 MCH 28.4 MCHC 31.9 L RDW Std Deviation 42.6 RDW Coeff of Juan Manuel 13.2 Plt Count 174 MPV 9.8 Sodium 141 Potassium 4.0 Chloride 106 Carbon Dioxide 27 Anion Gap 8 BUN 64 H D Creatinine 2.42 H D Est Cr Clr Drug Dosing 22.6 eGFR 21.65 BUN/Creatinine Ratio 26.4 H Glucose 108 H Calcium 9.2 PG Care Time/CCT Total # of Minutes Spent Total Time Spent with Patient: Total time spent is greater than 50% in coordination of care (as documented) at patient's floor/unit and/or counseling patient: Coding Level of Care Code 82151 SUB INP/OBS CARE 3/50MIN Diagnoses LIZ (acute kidney injury) N17.9 UTI (urinary tract infection) N30.00 Hematuria presence: without hematuria Urinary tract infection type: acute cystitis (2) UTI (urinary tract infection) Hematuria presence: without hematuria Urinary tract infection type: acute cystitis Qualified Code(s): N30.00 - Acute cystitis without hematuria
[2024-11-10 10:21] LABS: Hematocrit (blood only) 31.0 % (37.0-47.0); Hemoglobin 9.9 g/dl (12.0-16.0); Mean Corpuscular Hemoglobin 28.4 pg (25.0-34.0); Mean Corpuscular Volume 88.8 fL (80.0-100.0); Platelet Count 174 K/uL (130-400); RDW Standard Deviation 42.6 fL (36.4-46.3); Red Blood Count 3.49 M/uL (4.20-5.40); White Blood Count 5.27 K/ul (4.8-10.8)
--- NOTE | 2024-11-10 10:41 | Hospitalist Progress Note ---
Date of Service November 10, 2024 Assessment & Plan (1) LIZ (acute kidney injury): Plan: 64-year-old female [facility] resident presented with LIZ, admitted for suspected prerenal LIZ LIZ Baseline creatinine 1.14 Admitting creatinine 4.7 Renal ultrasound with mild atrophy no mass or hydronephrosis noted Creatinine downtrending, improving not yet normalized or baseline UTI UA infected appearing. Was placed on empiric Rocephin Cultures positive for Rocephin resistant E. coli Switch to Cipro. No history of QT prolongation, no history of aneurysms and no aneurysm seen on recent CT History of Mariam-en-Y bypass, J-tube placement, recent completed history including G-tube site perforation and lysis of adhesions Per patient was performed at [facility] Patient with history of Mariam-en-Y gastric bypass surgery. Currently has a PERC jejunostomy tube in place with tube feeds supplementing oral liquids. CTA/P: Jejunostomy tube in place, no evidence of free air or bowel obstruction. Thin pocket of fluid of the left ventral abdominal wall musculature is seen which may communicate with the distal excluded stomach and from which a gastric fistula is not excluded. 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 Suspect reported ventral wall dehiscence is some muscle weakness from surgery however clinically appears well and does not recommend transfer or any urgent intervention for this. Recommend patient be seen as outpatient. 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 This was known at prior discharge. Continue tube feeds GERD Continue Protonix (2) UTI (urinary tract infection): (3) G tube feedings: (4) GERD (gastroesophageal reflux disease): (5) Abdominal pain: Admission and Anticipated Discharge Date Admission Date: November 07, 2024 Subjective At bedside this morning. No abdominal pain. Eating and drinking well. Brisk urine output. No complaints but is very concerned about the cause of her issues, and when she will have surgical follow-up Physical Exam Physical Exam: General: A&Ox3. NAD. Cooperative. HEENT: Atraumatic, normocephalic. Vision and hearing grossly intact Pulm: CTAB A&P. -wheezes, -rales, -rhonchi. Symmetrical chest rise. No increased work of breathing. No respiratory distress. Cardiac: RRR, -mrg. Radial pulses intact and symmetrical. Abdominal: Abdominal binder is in place. Removed, abdomen is nontender without r ebound/guarding. Ostomy is in place without leaking. G-tube is in place functioning appropriately Results & Data Results & Data Vital Signs (Past 12 Hours) Vital Signs Temp Pulse Resp BP Pulse Ox O2 Del Method 11/10/24 07:47 36.6 C 98 H 16 124/78 96 Room Air PG Care Time/CCT Total # of Minutes Spent Total Time Spent with Patient: Total time spent is greater than 50% in coordination of care (as documented) at patient's floor/unit and/or counseling patient: Coding Level of Care Code 44331 SUB INP/OBS CARE 3/50MIN Diagnoses LIZ (acute kidney injury) N17.9 UTI (urinary tract infection) N30.00 Hematuria presence: without hematuria Urinary tract infection type: acute cystitis G tube feedings Z93.1 GERD (gastroesophageal reflux disease) K21.9 Abdominal pain R10.9 (2) UTI (urinary tract infection) Hematuria presence: without hematuria Urinary tract infection type: acute cystitis Qualified Code(s): N30.00 - Acute cystitis without hematuria
[2024-11-10 10:50] LABS: Anion Gap 8.0 (3-11); Blood Urea Nitrogen 64.0 mg/dl (6-23); Calcium 9.2 mg/dl (8.6-10.3); Carbon Dioxide 27.0 mmol/L (21-32); Chloride 106.0 mmol/L (98-107); Creatinine Clr Calc Pharmacy 22.6 ml/min; Glucose 108.0 mg/dl (70-99(Fasting)); Potassium 4.0 mmol/L (3.5-5.1); Sodium 141.0 mmol/L (136-145)
[2024-11-10] MEDS: CIPROFLOXACIN / D5W 400 MG/200 ML BAG IV SCH (11:06)
[2024-11-10] MEDS ORDERED: PEPTAMEN 1.5 CAL 1,000 ML BAG GT SCH (19:00)
[2024-11-10] MEDS: ACETAMINOPHEN 325 MG TAB PO PRN (21:29)
[2024-11-11 06:36] LABS: Hematocrit (blood only) 29.3 % (37.0-47.0); Hemoglobin 9.4 g/dl (12.0-16.0); Mean Corpuscular Hemoglobin 29.1 pg (25.0-34.0); Mean Corpuscular Volume 90.7 fL (80.0-100.0); Platelet Count 152 K/uL (130-400); RDW Standard Deviation 43.7 fL (36.4-46.3); Red Blood Count 3.23 M/uL (4.20-5.40); White Blood Count 4.79 K/ul (4.8-10.8)
[2024-11-11 06:59] LABS: Anion Gap 7.0 (3-11); Blood Urea Nitrogen 49.0 mg/dl (6-23); Calcium 9.1 mg/dl (8.6-10.3); Carbon Dioxide 26.0 mmol/L (21-32); Chloride 107.0 mmol/L (98-107); Creatinine Clr Calc Pharmacy 25.3 ml/min; Glucose 98.0 mg/dl (70-99(Fasting)); Potassium 4.4 mmol/L (3.5-5.1); Sodium 140.0 mmol/L (136-145)
--- NOTE | 2024-11-11 09:11 | Nephrology Progress Note ---
Date of Service November 11, 2024 Assessment & Plan (1) LIZ (acute kidney injury): Plan: * LIZ due to clinical dehydration, cystitis. It is unclear whether patient was receiving free water w/ J-tube feedings * Cr improved to 2.16 this am * Baseline Cr 1.0 09/04 at [facility] * Urine cuture + for E. Coli * 11/07/24 renal US revealed: R 9.1 cm, L 7.2 cm. Mild renal atrophy, mostly on the L. No mass or hydronephrosis * Agree with adding 250 cc free water q6 hrs to J-tube feeding * OK to discharge from nephrology perspective provided that shelter MD can monitor BMP daily to QOD until Cr returns to baseline 1.0. * No further nephrology evaluation indicated at this time. Will sign off. Please call if further assistance is needed (2) UTI (urinary tract infection): Plan: * Urinalysis w/ pyuria * Urine cx + E. Coli * Continue empiric ceftriaxone therapy Admission and Anticipated Discharge Date Admission Date: November 07, 2024 Subjective Mrs. Mckay was evaluated in her hospital room this morning. She is tolerating IV hydration without side effect. She voiced no new medical concerns Review of Systems Constitutional: no fever Eyes: no problem reported Ear, Nose, Mouth, Throat: no problem reported Respiratory: no problem reported Cardiovascular: no chest pain Gastrointestinal: no abdominal pain, no nausea, no vomiting and no diarrhea/loose stools Genitourinary: no problem reported Integumentary: no rash Physical Exam Constitutional: not in distress Eyes: PERRL, conjunctivae normal, anicteric sclerae ENMT: external ear and nose normal, oropharynx normal Neck: trachea midline, no thyromegaly Respiratory: normal respiratory effort, lungs clear to auscultation Cardiovascular: RRR, no murmur, no edema Gastrointestinal (Abdomen): normal bowel sounds, soft, nontender, no hepatosplenomegaly Musculoskeletal: Extremities: no cyanosis and no clubbing Skin: no rashes, warm and dry + turgor decreased Neurologic: no focal motor deficits Results & Data Vital Signs (Past 12 Hours) Vital Signs Temp Pulse Resp BP Pulse Ox O2 Del Method 11/11/24 07:51 36.8 C 110 H 18 127/79 100 Room Air Laboratory Results Laboratory Results - last 24 hr 11/10/24 11/11/24 09:23 06:05 WBC 5.27 4.79 L RBC 3.49 L 3.23 L Hgb 9.9 L 9.4 L Hct 31.0 L 29.3 L MCV 88.8 90.7 MCH 28.4 29.1 MCHC 31.9 L 32.1 RDW Std Deviation 42.6 43.7 RDW Coeff of Juan Manuel 13.2 13.2 Plt Count 174 152 MPV 9.8 9.2 L Sodium 141 140 Potassium 4.0 4.4 Chloride 106 107 Carbon Dioxide 27 26 Anion Gap 8 7 BUN 64 H D 49 H Creatinine 2.42 H D 2.16 H Est Cr Clr Drug Dosing 22.6 25.3 eGFR 21.65 24.81 BUN/Creatinine Ratio 26.4 H 22.7 H Glucose 108 H 98 Calcium 9.2 9.1 PG Care Time/CCT Total # of Minutes Spent Total Time Spent with Patient: Total time spent is greater than 50% in coordination of care (as documented) at patient's floor/unit and/or counseling patient: Coding Level of Care Code 92802 SUB INP/OBS CARE 3/50MIN Diagnoses LIZ (acute kidney injury) N17.9 UTI (urinary tract infection) N30.00 Hematuria presence: without hematuria Urinary tract infection type: acute cystitis (2) UTI (urinary tract infection) Hematuria presence: without hematuria Urinary tract infection type: acute cystitis Qualified Code(s): N30.00 - Acute cystitis without hematuria
[2024-11-11 11:54] VITALS: TEMP 97.9
--- NOTE | 2024-11-11 11:57 | Discharge Summary ---
Discharge Summary Date of Service November 11, 2024 Principal Dx & Hospital Course #1 = Principal Diagnosis (1) LIZ (acute kidney injury): 64-year-old female [facility] resident presented with LIZ, admitted for suspected prerenal LIZ To do as outpatient: 1. Keep follow-up this month with [facility] surgical team 2. Referral placed to Dr. Love for follow-up of fistulous tract. Case and imaging was discussed with [facility] during admission 3. Complete 5 days of treatment with ciprofloxacin for UTI. Ciprofloxacin adjusted for creatinine clearance of 25.3 at time of discharge. Continue ciprofloxacin 500 mg daily for 3 additional doses starting 11/12/2024 to complete 5 total days of treatment 4. Continue J-tube feeds. Increase free water to 250 cc 4 times daily 5. Continue using abdominal binder. May remove while laying in bed for comfort 6. Keep ostomy site clean dry and covered while showering 7. Repeat BMP 11/12, and if continuing to improve then every other day as needed until at baseline and stable x 1 LIZ Baseline creatinine 1.14 Admitting creatinine 4.7 Renal ultrasound with mild atrophy no mass or hydronephrosis noted Creatinine downtrending, 2.16 at time of discharge. Repeat BMP checks as noted UTI UA infected appearing. Was placed on empiric Rocephin Cultures positive for Rocephin resistant E. coli Switched to Cipro. No history of QT prolongation, no history of aneurysms and no aneurysm seen on recent CT Complete 5-day course of total treatment History of Mariam-en-Y bypass, J-tube placement, recent completed history including tube site perforation and lysis of adhesions, gastrocutaneous fistula Per patient G-tube care and recent surgery performed at [facility] Patient with history of Mariam-en-Y gastric bypass surgery. Currently has a PERC jejunostomy tube in place with tube feeds supplementing oral liquids. 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 Thin pocket of fluid of the left ventral abdominal wall musculature is seen which may communicate with the distal excluded stomach and from which a gastric fistula is not excluded. 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 Ostomy is intact, slightly retracted with normal output during admission No abdominal pain at time of this Did review findings with [facility]. Suspect reported ventral wall dehiscence is some muscle weakness from surgery however clinically appears well and does not recommend transfer or any urgent intervention for this. Recommend patient be seen as outpatient. Will address fistulous track as outpatient as well, a specialty referral to GI doctor Svetlana was placed. 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 Patient did well with the addition of 250 cc 4 times daily free water flushes which has been continued GERD Continue Protonix (2) UTI (urinary tract infection): (3) G tube feedings: (4) GERD (gastroesophageal reflux disease): (5) Abdominal pain: Admission HPI Per Admitting Provider Pt is a 64 y/o female with pmh of GERD, gastric bypass, gastric ulcer with gastric fistula/ostomy, G-tube who presents from [facility] after being found to have elevated cr >4.0. Her baseline from 09/04 is 1.14. Today in the ER he cr was 4.7. Pt states she drinks liquids only and gets nocturnal tube feeds. She admits to not drinking much over the past few weeks. She was given IVF in the ER and will be admitted for further treatment of LIZ likely 2nd to volume depletion from dehydration. Discharge Exam General: A&Ox3. NAD. Cooperative. Answers questions appropriately HEENT: Atraumatic, normocephalic. Vision and hearing grossly intact. Pulm: CTAB A&P. -wheezes, -rales, -rhonchi. Symmetrical chest rise. No increase in work of breathing. No respiratory distress. Cardiac: Sinus, slight tachycardia, -mrg. Radial pulses intact and symmetrical. Abdominal: GJ site intact, no erythema/warmth/tenderness. Ostomy is intact, pink, slightly retracted. No surrounding warmth/tenderness/erythema. Scant amount of foamy output and some gas in ostomy bag at time of evaluation. Discharge Plan Discharge Items Patient Disposition: Transfer Residential Fac Reason For Visit: LIZ Discharge Diagnosis: LIZ, prerenal Condition on Discharge: Good Activity: Resume your previous activity Non-emergency contact: Primary Care Provider, Surgeon and Cycle Consultant Call non-emergency contact if: you have any medication questions, your symptoms worsen, your pain is not controlled and your pain is worsening Follow-up/Referrals: Sultan Svetlana [Other] ([facility] - Diet: Other - See Diet Comment Addtl Attending Provider Instructions: You were seen in the hospital for a acute kidney injury. Your kidney numbers were rapidly improving with fluids and the addition of free water flushes to your J-tube feeds. Your baseline kidney number is approximately 1.11.14. Your kidney number peak was 4.7 during admission, these progressively improved every day and were 2.16 at time of discharge. You should have a repeat creatinine check 11/12 and then as long as he is continue to improve can have this checked every other day until her kidney function returns to baseline. Your outpatient provider may adjust her free water intake based on these results Please continue J-tube feeds with the addition of to 250 cc of free water 4 times daily for a total free water flush volume of 1 L. During admission you are doing well on Peptamen 1.5 at 80 cc/h for 14 hours a day. Your estimated caloric goal was 1650 kcal, and protein goal while it is approximately 80 g of protein. On return to [facility] you may continue to take Jevity 1.5 at 80 cc/h for 14 hours a day, in addition to the free water flushes as noted Please continue to use your abdominal binder. You may remove this while laying in bed for comfort. Please keep your ostomy site clean dry and covered while showering You have been prescribed 3 additional days of oral ciprofloxacin to complete 5 total days of treatment for a UTI. You are tolerating this antibiotic well at time of discharge Your case was discussed with [facility] during admission. It was recommended that you keep your surgical appoint with [facility]. In addition an appointment with Dr. 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 Pending Studies at Discharge: No Stand-Alone Forms: My [facility] AWAK Skilled Items Patient informed of condition?: Yes DNR: Yes Discharge Level of Care: Skilled Communicable Disease: No Discharge Prognosis: Stable Lines: None Urinary Catheter: No Medications and DC Order Prescriptions: New ciprofloxacin HCl [Cipro] 500 mg tablet 500 mg PO DAILY Qty: 3 0RF Tube Feeding Water Flush 250 ml J-tube QID Qty: 1 0RF Continued ondansetron HCl 4 mg Tablet 4 mg feeding tube Q8H PRN (Reason: Upset Stomach) Tums 300 mg (750 mg) Tablet,Chewable 600 mg feeding tube Q3H PRN (Reason: Indigestion) melatonin 3 mg Tablet 3 mg feeding tube HS omeprazole 40 mg Capsule,Delayed Release(Dr/Ec) 40 mg feeding tube DAILY acetaminophen 500 mg Tablet 500 mg feeding tube Q4H MDD 3gm/24hr PRN (Reason: Pain) triamcinolone acetonide 0.1 % Cream 1 applic TOPICAL DAILY magnesium hydroxide [Milk of Magnesia] 400 mg/5 mL Suspension 2,400 mg feeding tube DAILY PRN (Reason: Constipation) bisacodyl [Dulcolax (bisacodyl)] 10 mg Suppository 10 mg ID DAILY PRN (Reason: Constipation) Rx Instructions: Insert one suppository per protocol on day 4 of no BM Fleet Enema 19-7 gram/118 mL Enema 118 ml ID DAILY PRN (Reason: Constipation) Rx Instructions: Give is no results from Laxative suppository scopolamine base 1 mg over 3 days Patch 3 Day 1 patch TRANSDERMAL Q72H PRN (Reason: Nausea And Vomiting) ondansetron 4 mg Tablet,Disintegrating 4 mg PO Q6H PRN (Reason: Nausea And Vomiting) metoprolol tartrate 25 mg Tablet 25 mg feeding tube BID Rx Instructions: Hold if SBP less than 110 or HR less than 60 bpm diclofenac sodium 1 % Gel 2 g TOPICAL Q6H PRN (Reason: Back Pain) Discharge Orders: Discharge Order (Routine); Ordered 11/11/24 Ordered By: Godfrey Thomas Admission Data Admit Date/Time: 11/07/24 15:33 Attending Provider: Godfrey Thomas Admit Provider: Jefe Ovalle Primary Care Provider: Newton Lozano Other Providers: Jefe Ovalle; Declan Almaguer; Marta, Other Interventions: Discharge Summary Assessment (RN) Last Done: 11/11/24 12:34 Hospital Stay Data Consultations 11/07/24 15:01 ED Decision to Admit Stat 11/07/24 15:30 Consult Nephrology Routine 11/10/24 11:31 Radiology Transfer Of Images Routine Diagnostic Imagining Performed 11/07/24 15:36 US Renal Bladder [US renal/blad retro comp] Stat 11/09/24 09:07 CT Abd and Pelvis [CT abd pelvis wo con] Routine Discharge Instructions Given to Patient (Per Discharging Provider) You were seen in the hospital for a acute kidney injury. Your kidney numbers were rapidly improving with fluids and the addition of free water flushes to your J-tube feeds. Your baseline kidney number is approximately 1.11.14. Your kidney number peak was 4.7 during admission, these progressively improved every day and were 2.16 at time of discharge. You should have a repeat creatinine check 11/12 and then as long as he is continue to improve can have this checked every other day until her kidney function returns to baseline. Your outpatient provider may adjust her free water intake based on these results Please continue J-tube feeds with the addition of to 250 cc of free water 4 times daily for a total free water flush volume of 1 L. During admission you are doing well on Peptamen 1.5 at 80 cc/h for 14 hours a day. Your estimated caloric goal was 1650 kcal, and protein goal while it is approximately 80 g of protein. On return to [facility] you may continue to take Jevity 1.5 at 80 cc/h for 14 hours a day, in addition to the free water flushes as noted Please continue to use your abdominal binder. You may remove this while laying in bed for comfort. Please keep your ostomy site clean dry and covered while showering You have been prescribed 3 additional days of oral ciprofloxacin to complete 5 total days of treatment for a UTI. You are tolerating this antibiotic well at time of discharge Your case was discussed with [facility] during admission. It was recommended that you keep your surgical appoint with [facility]. In addition an appointment with Dr. 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 Total Time Total Time Spent Total Time Spent (In Minutes): Time spend day of discharge 55 minutes including direct patient care, documentation, review of labs and images, and coordination of care. Coding Level of Care Code 42729 INP/OBS DISCH >30 MIN Diagnoses LIZ (acute kidney injury) N17.9 UTI (urinary tract infection) N30.00 Hematuria presence: without hematuria Urinary tract infection type: acute cystitis G tube feedings Z93.1 GERD (gastroesophageal reflux disease) K21.9 Abdominal pain R10.9
[2024-11-11 16:47] VITALS: BP 136/72; PULSE 112; RESP 16; O2SAT 100
--- NOTE | 2024-11-11 20:36 | Electrocardiogram Report ---
Test Reason : Blood Pressure : */* mmHG Vent. Rate : 99 BPM Atrial Rate : 99 BPM P-R Int : 144 ms QRS Dur : 70 ms QT Int : 354 ms P-R-T Axes : 34 34 49 degrees QTcB Int : 454 ms Normal sinus rhythm Normal ECG No previous ECGs available Confirmed by Luis Alberto Painting ([id number]) on 11/11/2024 8:36:14 PM Referred By: Newton Hearthsisaac Confirmed By: Luis Alberto Painting
== END 2024-11-11 17:17 | DRG 683 ==
LOC: ED 13:08 → 3N 15:33 → SUATTDRO 15:33 → 3N 16:58